=== PATIENT | female | born 1955 | race Caucasian/White ===

== ENCOUNTER 2019-05-27 | Day surgery (SDC) | payer OTHER ==
[~2019-05-27] MED LIST: COMPAZINE10 MG PO; FOLIC ACID400 MC1 PO; KEYTRUDA100 MG/4 M; NORVASC5 M1 PO; OXYCODONE10 M1 PO; PRILOSEC OTC20 MG PO; ZOFRAN8 MG PO
[2019-05-27] MEDS ORDERED: MOTRIN800 MG PO (11:19)
== END 2019-05-27 11:55 | disposition home or self-care (01) ==
DX: C34.90 Malignant neoplasm of unspecified part of unspecified bronchus or lung (principal); F17.200 Nicotine dependence, unspecified, uncomplicated